=== PATIENT | male | born 1945 | race Caucasian/White ===

== ENCOUNTER 2018-01-12 07:58 | Emergency (ER) | payer OTHER, MEDICARE ==
[~2018-01-12] VITALS: Ht 172.7 cm; Wt 87.3 kg
[~2018-01-12 07:58] MED LIST: ATORVASTATIN CA10 MG PO; CIPROFLOXACIN500 M1 PO
[2018-01-12 08:54] LABS: HEMATOCRIT 42.7 % (38.0-50.0); HEMOGLOBIN 14.7 G/DL (12.5-16.6); MCH 30.9 PG (29.0-34.0); MCHC 34.4 G/DL (30.0-36.0); MCV 89.7 FL (86-99); PLATELET COUNT 166 K/uL (156-360); RBC DIS.WIDTH-CV 12.2 % (11.8-14.6); RBC DIS.WIDTH-SD 40.3 % (39-53); RED BLOOD COUNT 4.76 M/uL (4.00-5.50)
[2018-01-12 08:58] LABS: APPEARANCE CLEAR ((CLEAR)); BILIRUBIN NEGATIVE; BLOOD NEGATIVE; COLOR YELLOW ((YELLOW)); GLUCOSE (STRIP) NEGATIVE; KETONES NEGATIVE; LEUKOCYTES NEGATIVE; NITRITE NEGATIVE; PROTEIN (STRIP) NEGATIVE; SPECIFIC GRAVITY 1.013 (1.000-1.030); UCUL ADDED? NO; UROBILINOGEN 0.2 MG/DL (0.2-1.0)
[2018-01-12 09:23] LABS: CHLORIDE 101 MEQ/L (99-109); GFR ESTIMATE (CALCULATED) > 59 mL/min/ (58.99-99999); GLUCOSE 149 mg/dL (70-99); POTASSIUM 3.8 MEQ/L (3.7-5.4); SODIUM 136 MEQ/L (136-147); UREA NITROGEN (BUN) 13 mg/dL (9-23)
[2018-01-12 10:04] VITALS: BP 134/79
== END 2018-01-12 10:15 | disposition home or self-care (01) ==
LOC: EME 07:58
PROVIDERS: Nurse Practitioner Family
DX: N40.1 Benign prostatic hyperplasia with lower urinary tract symptoms (principal); R33.8 Other retention of urine; E78.5 Hyperlipidemia, unspecified; Z87.891 Personal history of nicotine dependence
CPT/HCPCS: 80048; 81003; 85027; 99281; 99283

== ENCOUNTER 2018-01-13 20:08 | Emergency (ER) | payer OTHER, MEDICARE ==
[~2018-01-13] VITALS: Ht 172.7 cm; Wt 87.9 kg
[2018-01-13 20:10] VITALS: BP 155/88
== END 2018-01-13 23:55 | disposition home or self-care (01) ==
LOC: EME 20:08
PROC: 0T2BX0Z Change Drainage Device in Bladder, External Approach (ICD-10-PCS; principal; 2018-01-13)
DX: T83.031A Leakage of indwelling urethral catheter, initial encounter (principal); Y82.8 Other medical devices associated with adverse incidents
CPT/HCPCS: 99281; 99283

== ENCOUNTER 2018-01-14 01:01 | Emergency (ER) | payer OTHER, MEDICARE ==
[~2018-01-14] VITALS: Ht 172.7 cm; Wt 87.9 kg
[2018-01-14 02:03] LABS: HEMATOCRIT 39.9 % (38.0-50.0); HEMOGLOBIN 13.9 G/DL (12.5-16.6); MCH 31.2 PG (29.0-34.0); MCHC 34.8 G/DL (30.0-36.0); MCV 89.5 FL (86-99); RBC DIS.WIDTH-CV 12.1 % (11.8-14.6); RBC DIS.WIDTH-SD 39.7 % (39-53); RED BLOOD COUNT 4.46 M/uL (4.00-5.50); WHITE BLOOD COUNT 13.6 K/uL (4.1-10.2)
[2018-01-14 02:13] LABS: CHLORIDE 103 mEq/L (99-109); POTASSIUM 4.2 mEq/L (3.7-5.4); SODIUM 136 mEq/L (136-147)
[2018-01-14 02:15] LABS: GLUCOSE 137 mg/dL (70-99)
[2018-01-14 02:19] LABS: CREATININE 0.9 mg/dL (0.6-1.3); GFR ESTIMATE (CALCULATED) > 59 mL/min/ (58.99-99999)
[2018-01-14 02:20] LABS: UREA NITROGEN (BUN) 14 mg/dL (9-23)
[2018-01-14 02:51] LABS: PLAT.SUFFICIENCY ADEQUATE; PLATELET COUNT 163 K/uL (156-360)
[2018-01-14 03:26] LABS: APPEARANCE SL.HAZY ((CLEAR)); BILIRUBIN NEGATIVE; BLOOD LARGE; COLOR YELLOW ((YELLOW)); GLUCOSE (STRIP) 50; KETONES NEGATIVE; LEUKOCYTES NEGATIVE; NITRITE NEGATIVE; PROTEIN (STRIP) 100; SPECIFIC GRAVITY 1.023 (1.000-1.030); UROBILINOGEN 0.2 MG/DL (0.2-1.0)
[2018-01-14 03:31] LABS: BACTERIA NONE SEEN /HPF; EPITHELIAL CELLS NONE SEEN /HPF; MUCUS 1+ /LPF; RED BLOOD CELLS TNTC /HPF (0-5); UCUL ADDED? YES; WHITE BLOOD CELLS 0-5 /HPF (0-5)
[2018-01-14 04:00] VITALS: BP 154/81
== END 2018-01-14 04:02 | disposition home or self-care (01) ==
LOC: EME 01:01
PROVIDERS: Physician Assistant
PROC: 0T2BX0Z Change Drainage Device in Bladder, External Approach (ICD-10-PCS; principal; 2018-01-14)
DX: N40.1 Benign prostatic hyperplasia with lower urinary tract symptoms (principal); R33.8 Other retention of urine; E78.5 Hyperlipidemia, unspecified
CPT/HCPCS: 80048; 81003; 85027; 87086; 99281; 99284

== ENCOUNTER → 2018-01-23 | Outpatient (CLI) | payer OTHER, MEDICARE | END | disposition home or self-care (01) | LOC: CDC 13:55 | DX: Z01.810 Encounter for preprocedural cardiovascular examination (principal); N40.1 Benign prostatic hyperplasia with lower urinary tract symptoms; R33.8 Other retention of urine | CPT/HCPCS: 93000 ==